=== PATIENT | female | born 1960 | race Caucasian/White ===

== ENCOUNTER → 2018-07-07 | Outpatient (CLI) | payer OTHER ==
[~2018-07-07] MED LIST: ALBUTEROL SULFATE 2.5 MG/3 ML NEBU. NEB ONE
--- NOTE | 2018-07-07 13:21 | RAD ---
PA and lateral chest radiograph. History: Disability determination, anxiety. COPD. Comparison: None. Findings: Cardiomediastinal silhouette is within normal limits for size. Bilateral lung kennedy appear clear without evidence of infiltrate, effusion, or pneumothorax. Aortic atherosclerosis is seen. Multiple thoracic levels demonstrate marginal disc osteophytes. Impression: 1. No acute cardiopulmonary process. Electronically signed by: Rory Chau MD (07/07/2018 1:17 PM) [place] [id number]
== END | disposition home or self-care (01) ==
LOC: PF 08:11
PROVIDERS: ATTEND Neuromusculoskeletal Medicine, Sports Medicine
DX: J44.9 Chronic obstructive pulmonary disease, unspecified (principal); M25.78 Osteophyte, vertebrae; I70.0 Atherosclerosis of aorta; F41.8 Other specified anxiety disorders
CPT/HCPCS: 71046; 94060; 94640; J7613